=== PATIENT | female | born 1960 | race Caucasian/White ===

== ENCOUNTER → 2017-05-24 | Outpatient (CLI) | payer OTHER | END | disposition home or self-care (01) | LOC: ROC 09:47 | PROVIDERS: ATTEND Radiology Radiation Oncology | DX: C50.919 Malignant neoplasm of unspecified site of unspecified female breast (principal); C78.00 Secondary malignant neoplasm of unspecified lung; C79.31 Secondary malignant neoplasm of brain; C78.7 Secondary malignant neoplasm of liver and intrahepatic bile duct; C69.31 Malignant neoplasm of right choroid; C69.32 Malignant neoplasm of left choroid | CPT/HCPCS: 99213; G0463 ==

== ENCOUNTER → 2017-06-19 | Outpatient (CLI) | payer OTHER ==
[~2017-06-19] MED LIST: GADOBUTROL 7.5 MMOL/7.5 ML PFS ONE
== END | disposition home or self-care (01) ==
LOC: RAD 14:26
PROVIDERS: ATTEND Radiology Radiation Oncology
DX: C79.31 Secondary malignant neoplasm of brain (principal); C50.919 Malignant neoplasm of unspecified site of unspecified female breast; H33.8 Other retinal detachments
CPT/HCPCS: 70543; 70553; A9585

== ENCOUNTER → 2017-06-21 | Outpatient (CLI) | payer OTHER | END | disposition home or self-care (01) | LOC: ROC 09:21 | PROVIDERS: ATTEND Radiology Radiation Oncology | DX: Z08 Encounter for follow-up examination after completed treatment for malignant neoplasm (principal); C50.919 Malignant neoplasm of unspecified site of unspecified female breast; C78.7 Secondary malignant neoplasm of liver and intrahepatic bile duct; C79.31 Secondary malignant neoplasm of brain; C78.00 Secondary malignant neoplasm of unspecified lung; H54.3 Unqualified visual loss, both eyes | CPT/HCPCS: 99212; G0463 ==